=== PATIENT | female | born 2000 | race Caucasian/White ===

== ENCOUNTER 2023-10-12 10:50 | Emergency (ER) | payer OTHER ==
[~2023-10-12] VITALS: Ht 165.1 cm; Wt 68.0 kg
[2023-10-12 10:58] VITALS: BP 149/86; TEMP 98.6; O2SAT 97
[2023-10-12] MEDS ORDERED: dexaMETHasone SOD PHOSPHATE 1 ML ONE (11:14)
[2023-10-12] MEDS ORDERED: PENICILLIN G BENZATHINE 2.4 MMU/4 ML ML IM ONE (11:14)
[2023-10-12] MEDS: PENICILLIN G BENZATHINE 2.4 MMU/4 ML ML IM ONE (11:20)
[2023-10-12] MEDS: dexaMETHasone SOD PHOSPHATE 10 MG/ML VIAL MC ONE (11:23)
== END 2023-10-12 11:25 | disposition home or self-care (01) ==
LOC: ER 11:02
DX: J02.0 Streptococcal pharyngitis (principal)
CPT/HCPCS: 99283; 96372; J0558; J1100